=== PATIENT | male | born 1960 | race Caucasian/White ===

== ENCOUNTER 2017-11-01 09:13 | Observation (INO) | payer MEDICARE ==
[2017-11-01 09:44] LABS: #Eosinphils 0.3 thou/uL (0.0-0.7); #Lymphocytes 0.7 thou/uL (1.20-3.40); #Monocytes 0.5 thou/uL (0.11-0.59); #Neutrophils 6.7 thou/uL (1.40-6.50); %Basophils 0.2 % (0.0-1.0); %Eosinophils 3.5 % (0.0-10.0); %Lymphocytes 8.7 % (21.0-51.0); %Monocytes 5.6 % (0.0-10.0); Hemoglobin 10.5 g/dL (14.0-18.0); Mean Corpuscular HGB CONC 32.2 g/dL (32.0-36.0); Mean Corpuscular Hemoglobin 31.8 pg (27.0-31.0); Mean Corpuscular Volume 98.7 fl (80.0-94.0); Mean Platelet Volume 6.8 fL (7.4-10.4); Platelet Count 270 thou/uL (130-400); RBC Distribution Width 14.1 % (11.5-14.5); Red Blood Cell (RBC) Count 3.32 mill/uL (4.70-6.10); White Blood Cell (WBC) Count 8.1 thou/uL (4.8-10.8)
[2017-11-01 09:46] LABS: PTT 26.1 SEC (22.9-36.1); Prothrombin Time 12.8 SEC (12.0-14.7)
[2017-11-01 10:01] LABS: ALT (SGPT) 12 U/L (8-55); AST (SGOT) 12 U/L (5-34); Albumin 3.8 g/dL (3.5-5.0); Alkaline Phosphatase 97 U/L (40-150); Anion Gap 12 mmol/L (10-20); BUN (Urea Nitrogen) 15 mg/dL (8.4-25.7); Bilirubin, Total 0.3 mg/dL (0.2-1.2); CK (CPK) 43 U/L (30-200); Calc. Creatinine Clearance 0 mL/min (70-130); Calcium 8.7 mg/dL (7.8-10.44); Carbon Dioxide 21 mmol/L (22-29); Chloride 110 mmol/L (98-107); Estimated GFR-MDRD 73; Globulin 3.3 g/dL (2.4-3.5); Glucose 155 mg/dL (70-105); Potassium 3.8 mmol/L (3.5-5.1); Protein, Total 7.1 g/dL (6.0-8.3); Sodium 139 mmol/L (136-145)
--- NOTE | 2017-11-01 10:04 | RAD ---
PORTABLE CHEST 1 VIEW: Date: 11/01/17 Time: 1030 hours HISTORY: Chest pain. FINDINGS/IMPRESSION: The heart size is prominent. Left-sided AICD is present. Lungs are well expanded without focal areas of consolidation, pneumothorax, arpan pulmonary edema, or pleural effusions. POS: OFF
[2017-11-01 10:16] LABS: CKMB 0.6 ng/mL (0-6.6); Troponin I Less than 0.010 ng/mL (< 0.028)
[2017-11-01] MEDS ORDERED: Morphine 4 MG/ML VIAL ONE (11:05)
[2017-11-01] MEDS ORDERED: Ondansetron HCl/PF 4 MG/2 ML Vial ONE (11:08)
--- NOTE | 2017-11-01 12:03 | CT ---
CT ABDOMEN AND PELVIS WITH IV CONTRAST: HISTORY: Left flank pain and melena. COMPARISON: None. TECHNIQUE: Multiple axial tomograms obtained through the abdomen and pelvis with IV enhancement. FINDINGS: The lung bases are clear. The liver, spleen, and pancreas appear unremarkable. The stomach and duodenum are unremarkable. The adrenal glands are normal. Review of the kidneys reveals numerous calcified lesions seen in the left kidney. There is at least one of these calcified lesions in the right kidney, which is subcentimeter. On the left, the largest of these calcified lesions is in the superior pole and measures approximately 1.7 cm. At least one is exophytic, off the inferior pole of the left kidney, measuring approximately 1 cm. The kidneys otherwise show symmetric function and enhancement. There is no hydronephrosis. The uret ers are unremarkable. No calcifications are seen within the collecting structures. These calcified lesions are within the renal parenchyma. The urinary bladder is unremarkable. Small bowel loops are of normal caliber. The colon is unremarkable. There appears to be a radiopaque suture line in the upper sigmoid, which may represent an anastomotic site. The aorta is of normal caliber. No adenopathy identified. The o sseous structures are unremarkable. IMPRESSION: 1. Numerous densely calcified lesions involving both kidneys, more numerous on the left, as describe d above. These have the appearance of prior renal cysts that have calcified, possibly due to dense m ilk of calcium formation within renal cysts. 2. No acute process identified. POS: [facility]
[2017-11-01 13:29] LABS: Troponin I Less than 0.010 ng/mL (< 0.028)
[2017-11-01] MEDS ORDERED: Mag-Al 1200 mg/1200 mg/30 ML UDCUP PO PRN (14:20)
[2017-11-01] MEDS ORDERED: Loratadine 10 MG TAB PO PRN (14:20)
[2017-11-01] MEDS ORDERED: hydrALAZINE 20 MG/ML VIAL SLOW IVP PRN (14:20)
[2017-11-01] MEDS ORDERED: Zolpidem Tartrate 5 MG TAB PO PRN (14:20)
[2017-11-01] MEDS ORDERED: Acetaminophen 325 MG TAB PO PRN (14:20)
[2017-11-01] MEDS ORDERED: Artificial Tears 18 DROP/0.9 ML EA EYE PRN (14:20)
[2017-11-01] MEDS ORDERED: Eucerin (Mineral Oil/Petrolatum,White) 30 gm Jar TOP PRN (14:20)
[2017-11-01] MEDS ORDERED: Loperamide HCl 2 MG CAP PO PRN (14:20)
[2017-11-01] MEDS ORDERED: Senokot 8.6 MG TAB PO PRN (14:20)
[2017-11-01] MEDS ORDERED: HYDROcodone/Acetaminophen 10/325 mg Tablet PO PRN (14:20)
[2017-11-01] MEDS ORDERED: Ondansetron ODT 4 MG TAB PO PRN (14:20)
[2017-11-01] MEDS ORDERED: Sodium Chloride 0.65% Nasal 44 ML BOT EA NARE PRN (14:20)
[2017-11-01] MEDS ORDERED: Diabetic Tussin 200 MG/10 ML UDCUP PO PRN (14:20)
[2017-11-01] MEDS ORDERED: Ondansetron HCl/PF 4 MG/2 ML Vial IVP PRN (14:20)
[2017-11-01] MEDS ORDERED: Milk Of Magnesia 30 ML UDCUP PO PRN (14:20)
[2017-11-01] MEDS ORDERED: ISOVUE-370 76%-LOCM 1 ML ONE (14:27)
[2017-11-01 15:07] VITALS: BMI 37.1
[2017-11-01] MEDS: metroNIDAZOLE 500 MG TAB PO SCH ×2 (15:32→20:21)
[2017-11-01] MEDS: Morphine 5 MG/ML SYRINGE SLOW IVP PRN ×2 (15:33→20:19)
--- NOTE | 2017-11-01 15:38 | HP ---
PRIMARY CARE PHYSICIAN: [facility] call admission. This patient is originally from [place] and he is paigedanii pierce to establish here locally and currently he does not have any primary care physician. REASON FOR ADMISSION: Left lower quadrant abdominal pain, chest pain. HISTORY OF PRESENT ILLNESS: A 56-year-old male, who has underlying history of congestive heart failu re and AICD, who came to emergency room with a complaint of left lower quadrant abdominal pain and ch est pain. The patient reports that yesterday morning, he was experiencing left lower quadrant pain a nd he also noticed maroon color blood in the stool. He denies any fever or chills. He was feeling n ausea, but he did not have any vomiting. This type of pain he had on and off yesterday. He reported to me that he had 3-4 times hematochezia. He denies any melena. He denies any hematemesis. He den ies any epigastric abdominal pain. He is only taking aspirin as a blood thinner medicine, but he den ies taking any other blood thinner medicine. He denies any fever or chills. He denies any constipat ion, diarrhea. He denies any abdominal distention. Today in the emergency room, patient had stool for guaiac checked, it was negative for any blood. Hi s hemoglobin is 10.5. This patient reports that this morning when he woke up, at that time, he was having substernal chest pain, which radiated to left side of his neck associated with nausea, weakness, and mild shortness of breath. He denied any pleuritic chest pain. He denies any relation of chest pain with food, respir ation or activity. He denies any fever, cough. In the emergency room, this patient had electrocardiogram, which showed sinus tachycardia, left anter ior fascicular block and chest x-ray was normal. This patient also had a CT of the abdomen and pelvi s, which was negative for any acute process. Cardiac enzymes were negative. Patient is being admitt ed for observation for above-mentioned reasons. ALLERGIES: No known drug allergy. CURRENT HOME MEDICATIONS: Lisinopril 20 mg p.o. daily, Coreg 6.25 mg p.o. b.i.d., aspirin 81 mg p.o. daily, and Lasix 20 mg p.o. daily. REVIEW OF SYSTEMS: The following complete review of systems was negative, unless otherwise mentioned in the HPI or below: Constitutional: Weight loss or gain, ability to conduct usual activities. Skin: Rash, itching. Eyes: Double vision, pain. ENT/Mouth: Nose bleeding, neck stiffness, pain, tenderness. Cardiovascular: Palpitations, dyspnea on exertion, orthopnea. Respiratory: Shortness of breath, wheezing, cough, hemoptysis, fever or night sweats. Gastrointestinal: Poor appetite, abdominal pain, heartburn, nausea, vomiting, constipation, or diarrh ea. Genitourinary: Urgency, frequency, dysuria, nocturia. Musculoskeletal: Pain, swelling. Neurologic/Psychiatric: Anxiety, depression. Allergy/Immunologic: Skin rash, bleeding tendency. Please see my HPI for pertinent positive and negative. All other review of systems reviewed and nega tive except mentioned in the HPI. PAST MEDICAL HISTORY: Hypertension, obesity, chronic low back pain, congestive heart failure type of EF not known, coronary artery disease with stent. PAST SURGICAL HISTORY: Appendicectomy, colon resection for diverticulitis with complications. PAST PSYCHIATRIC HISTORY: Reviewed and negative. SOCIAL HISTORY: The patient currently lives with a friend. No history of illicit drug abuse. He is on disability. He chews tobacco. He drinks alcohol occasionally. He smokes cigarette occasionally . FAMILY HISTORY: Father had lung cancer and heart disease. No family history of stroke. EMERGENCY ROOM COURSE: The patient is given morphine 4 mg, Zofran 4 mg, IV fluid 1 liter. PHYSICAL EXAMINATION: VITAL SIGNS: On arrival, blood pressure 117/80, pulse 110, respiratory rate 18, temperature 98.0, sa turation 98% on room air, weight 113.4 kilograms. GENERAL: Patient is currently alert, awake, no obvious acute distress. HEENT: Head is normocephalic, atraumatic. Eyes: Pupils round, reactive to light. Extraocular musc le intact. ENT: Oropharynx within normal limits. Moist mucous membranes. No oral lesion, no pharyngeal erythe ma, no exudate. NECK: Supple, no JVD, no thyromegaly, no carotid bruit, no jugular venous distention. LUNGS: Clear to auscultation without any rhonchi or rales. CARDIAC: S1, S2 regular, tachycardia, no murmur, no gallop, no rub. ABDOMEN: Left lower quadrant discomfort noted, but no direct rebound tenderness, no guarding, no rig idity, no rebound. RECTAL: Examination done, which showing stool normal without any blood. BACK: Unremarkable, no CVA tenderness. EXTREMITIES: Upper extremity passive movement of all joints are normal. Lower extremities: No yu a. Good peripheral pulsation. SKIN: No skin rash. HEMATOLOGICAL: No lymphadenopathy. PSYCHIATRIC: Normal affect. NEUROLOGIC: Nonfocal examination. SIGNIFICANT LABS: EKG showing sinus tachycardia, left anterior fascicular block, left atrial enlarge ment. Chest x-ray based on my review, no acute cardiopulmonary process, AICD in place. Abdomen and pelvis CT scan showing diverticulitis, renal cyst. CBC: WBC 8.1, hemoglobin 10.5, MCV 98.7, platele t 270. INR 1.0. BMP shows sodium 139, potassium 3.8, chloride 110, carbon dioxide 21, BUN 15, creat inine 1.05, glucose 155, calcium 8.7. LFT: AST 12, ALT 12, alkaline phosphatase 97, albumin 3.8. Cardiac enzymes negative x2. CK 43. ASSESSMENT AND PLAN: 1. Left lower quadrant abdominal pain with suspected he may to change via the patient reports that charles painting had left lower quadrant abdominal pain yesterday with maroon colored blood. Currently, guaiac is n egative. He does not have any leukocytosis. He does not have any local peritoneal sign. CT of the abdomen and pelvis with IV contrast is also negative for any diverticulitis. At this point, we will monitor clinically. If this patient persistently having pain, then he will consider adding p.o. oral ly Cipro and Flagyl to p.o. Cipro and Flagyl empirically for some early diverticulitis. We will als o check urinalysis and send urine culture. We will control his pain with [place] and morphine p.r.n. b asis while in hospital. 2. Chest pain. The patient's chest pain description is atypical. He has coronary artery disease, b ut currently EKG is not showing any ischemic changes. His troponin is also negative x2 in this way w e ruled out acute coronary syndrome. We will do third set of cardiac enzyme and will consider doing Cardiolite stress test tomorrow morning for diagnostic reason. We will check lipid profile for risk stratification. We will check BNP. Given his history of congestive heart failure. Meanwhile, while in hospital, we will continue aspirin 81 mg p.o. daily. We will hold on blood pressure medication a s well as nitropatch because of relatively low blood pressure. 3. Congestive heart failure, systolic or diastolic is not done, but he has AICD and suspecting from diastolic, heart rate a screen. suspecting from systolic heart failure. At this point, the patient is already taking lisinopril and Coreg therapy, but currently blood pressure is running low and that is why we will hold on blood pressure medication upon discharge. We will continue titrated dose of l isinopril and Coreg. 4. Obesity. Dietary education given, weight loss education given. Healthy lifestyle measures discu ssed with the patient. 5. Chronic low back pain. The patient will be given pain medication. 6. Anemia, normocytic with macrocytosis. Continue ferrous sulfate and multivitamin therapy while in hospital. 7. Deep venous thrombosis prophylaxis not needed because we are expecting discharge in 24 hours. 8. Gastrointestinal prophylaxis, Pepcid 20 mg p.o. b.i.d. 9. Code status: The patient is FULL CODE. Patient does not have any surrogate decision maker. DISPOSITION AND PLAN: Based on stress test result. Plan of care discussed with the patient in karla cervantes
[2017-11-01 16:08] LABS: Troponin I Less than 0.010 ng/mL (< 0.028)
[2017-11-01 17:03] LABS: Bilirubin Negative (Negative); Blood, Urine Negative (Negative); Clarity CLEAR (Clear); Glucose, Urine (Dipstick) Negative (Negative); Leukocyte Negative (Negative); Nitrite Negative (Negative); Protein, Urine (Dipstick) Negative (Neg-Trace); Urobilinogen 0.2 mg/dL (0.2-1.0); pH, Urine 5.5 (5.0-9.0)
[2017-11-01 17:08] LABS: Bacteria/HPF None Seen HPF (None Seen); Hyaline Casts/LPF 0-3 HYALINE CAST LPF (0-3 Hyaline); RBC/HPF 0-3 HPF (0-3); Squamous Epithelial 0-3 HPF (0-3); WBC/HPF 0-3 HPF (0-3)
[2017-11-01 19:19] LABS: Hemoglobin 9.4 g/dL (14.0-18.0)
[2017-11-01] MEDS: Cipro 250 MG TAB PO SCH (20:21)
[2017-11-01] MEDS: Famotidine 20 MG TAB PO SCH (20:22)
[2017-11-02] MEDS: Morphine 5 MG/ML SYRINGE SLOW IVP PRN ×3 (01:47→12:15)
[2017-11-02 05:20] LABS: #Basophils 0.1 thou/uL (0.0-0.2); #Eosinphils 0.4 thou/uL (0.0-0.7); #Lymphocytes 0.7 thou/uL (1.20-3.40); #Monocytes 0.4 thou/uL (0.11-0.59); #Neutrophils 3.8 thou/uL (1.40-6.50); %Basophils 1.3 % (0.0-1.0); %Eosinophils 6.7 % (0.0-10.0); %Monocytes 7.5 % (0.0-10.0); %Neutrophils 71.4 % (42.0-75.0); Hemoglobin 8.6 g/dL (14.0-18.0); Mean Corpuscular HGB CONC 33.1 g/dL (32.0-36.0); Mean Corpuscular Volume 96.7 fl (80.0-94.0); Mean Platelet Volume 6.4 fL (7.4-10.4); Platelet Count 211 thou/uL (130-400); White Blood Cell (WBC) Count 5.3 thou/uL (4.8-10.8)
[2017-11-02 05:27] LABS: Anion Gap 8 mmol/L (10-20); BUN (Urea Nitrogen) 12 mg/dL (8.4-25.7); Calc. Creatinine Clearance 160 mL/min (70-130); Calcium 8.2 mg/dL (7.8-10.44); Carbon Dioxide 26 mmol/L (22-29); Cardiac Risk 3.4 (Less than 4.5); Chloride 109 mmol/L (98-107); Cholesterol 94 mg/dl (< 200 Desired); Estimated GFR-MDRD Greater than 90; Glucose 113 mg/dL (70-105); HDL Cholesterol 28 mg/dL (>60 Neg Risk); LDL Cholesterol, Calculated 54 mg/dL; Potassium 3.9 mmol/L (3.5-5.1); Sodium 139 mmol/L (136-145); Triglycerides 59 mg/dL (Less than 150)
[2017-11-02] MEDS: Cipro 250 MG TAB PO SCH (06:08)
--- NOTE | 2017-11-02 10:31 | PDOC.PN ---
- Subjective Encounter Start Date: 11/02/17 Encounter Start Time: 08:40 -: old records requested/rev Patient seen and examined. No new complaints. No overnight events - Objective Resuscitation Status: Resuscitation Status FULL:Full Resuscitation MAR Reviewed: Yes Vital Signs & Weight: Vital Signs (12 hours) Temp Pulse Resp BP Pulse Ox 11/02/17 08:00 98.3 F 82 16 11/02/17 07:53 98.3 F 82 16 99/53 L 97 11/02/17 04:53 98.6 F 85 18 103/55 L 95 Weight Weight 251 lb 11.2 oz I&O: 11/01/17 11/02/17 11/03/17 06:59 06:59 06:59 Intake Total 1090 Output Total 201 Balance 889 Result Diagrams: 11/02/17 04:55 11/02/17 04:55 EKG Reviewed by me: Yes Phys Exam - Physical Examination Constitutional: NAD HEENT: PERRLA, moist MMs, sclera anicteric Neck: no JVD, supple Respiratory: no wheezing, no rales, no rhonchi Cardiovascular: RRR, no significant murmur, no rub Gastrointestinal: soft, non-tender, no distention, positive bowel sounds Musculoskeletal: no edema, pulses present Neurological: non-focal, normal sensation Lymphatic: no nodes Psychiatric: normal affect, A&O x 3 Skin: no rash, normal turgor Dx/Plan (1) Chest pain Code(s): R07.9 - CHEST PAIN, UNSPECIFIED Status: Acute (2) LLQ abdominal pain Code(s): R10.32 - LEFT LOWER QUADRANT PAIN Status: Acute (3) Anemia, normocytic normochromic Code(s): D64.9 - ANEMIA, UNSPECIFIED Status: Chronic (4) CHF (congestive heart failure) Code(s): I50.9 - HEART FAILURE, UNSPECIFIED Status: Chronic Qualifiers: Heart failure type: unspecified Heart failure chronicity: chronic Qualified Code(s): I50.9 - Heart failure, unspecified (5) Obesity (BMI 30-39.9) Code(s): E66.9 - OBESITY, UNSPECIFIED Status: Chronic - Plan cont current plan of care, continue antibiotics * continue empiric cipro and flagyl for suspected early diverticulitis * today stress test, if negative will discharge and advised outpt follow up * medication reviewed as below * symptomatic treatment. * hold BP meds for low BP * add ferrous sulfate * check H & H at 1 pm Review of Systems - Review of Systems ENT: negative: Ear Pain, Ear Discharge, Nose Pain, Nose Discharge, Nose Congestion, Mouth Pain, Mouth Swelling, Throat Pain, Throat Swelling, Other Respiratory: negative: Cough, Dry, Shortness of Breath, Hemoptysis, SOB with Excertion, Pleuritic Pain, Sputum, Wheezing Cardiovascular: negative: chest pain, palpitations, orthopnea, paroxysmal nocturnal dyspnea, edema, light headedness, other Gastrointestinal: negative: Nausea, Vomiting, Abdominal Pain, Diarrhea, Constipation, Melena, Hematochezia, Other Genitourinary: negative: Dysuria, Frequency, Incontinence, Hematuria, Retention , Other Musculoskeletal: negative: Neck Pain, Shoulder Pain, Arm Pain, Back Pain, Hand Pain, Leg Pain, Foot Pain, Other Skin: negative: Rash, Lesions, [place], Bruising, Other - Medications/Allergies Allergies/Adverse Reactions: Allergies Allergy/AdvReac Type Severity Reaction Status Date / Time No Known Drug Allergies Allergy Verified 11/01/17 14:34 Medications: Current Medications Acetaminophen (Tylenol) 650 mg PO Q4H PRN PRN Reason: Headache/Fever or Pain Hydrocodone Bitart/Acetaminophen ([place] 10/325) 1 tab PO Q4H PRN PRN Reason: Moderate Pain (4-6) Al Hydroxide/Mg Hydroxide (Maalox) 30 ml PO Q6H PRN PRN Reason: Heartburn or Indigestion Artificial Tears (Tears Naturale) 0 drop EA EYE PRN PRN PRN Reason: Dry Eyes Aspirin (Aspirin Chewable) 81 mg PO DAILY [facility] Ciprofloxacin (Cipro) 500 mg PO [phone] [facility] Last Admin: 11/02/17 06:08 Dose: 500 mg Famotidine (Pepcid) 20 mg PO BID [facility] Last Admin: 11/01/17 20:22 Dose: 20 mg Guaifenesin (Robitussin Sf) 200 mg PO Q4H PRN PRN Reason: Cough Hydralazine HCl (Apresoline) 10 mg SLOW IVP Q4H PRN PRN Reason: Systolic BP > 180 Loperamide HCl (Imodium) 2 mg PO PRN PRN PRN Reason: Diarrhea/Loose Stools Loratadine (Claritin) 10 mg PO DAILYPRN PRN PRN Reason: Sinus Symptoms Magnesium Hydroxide (Milk Of Magnesium) 30 ml PO DAILYPRN PRN PRN Reason: Constipation Metronidazole (Flagyl) 500 mg PO TID [facility] Last Admin: 11/01/17 20:21 Dose: 500 mg Mineral Oil/White Petrolatum (Eucerin Cream) 0 gm TOP BIDPRN PRN PRN Reason: Dry Skin Morphine Sulfate (Morphine) 2 mg SLOW IVP Q4H PRN PRN Reason: Severe Pain (7-10) Last Admin: 11/02/17 06:06 Dose: 2 mg Ondansetron HCl (Zofran Odt) 4 mg PO Q6H PRN PRN Reason: Nausea/Vomiting Ondansetron HCl (Zofran) 4 mg IVP Q6H PRN PRN Reason: Nausea/Vomiting Last Admin: 11/02/17 01:47 Dose: 4 mg Senna (Senokot) 2 tab PO HSPRN PRN PRN Reason: Constipation Sodium Chloride ([place] Nasal [place] 0.65%) 0 ml EA NARE QIDPRN PRN PRN Reason: Nasal Congestion Zolpidem Tartrate (Ambien) 5 mg PO HSPRN PRN PRN Reason: Insomnia
[2017-11-02] MEDS: Famotidine 20 MG TAB PO SCH (12:14)
[2017-11-02] MEDS: metroNIDAZOLE 500 MG TAB PO SCH (12:14)
[2017-11-02 13:04] VITALS: BP 103/51; TEMP 97.7
[2017-11-02] MEDS ORDERED: ADENOSINE 60 MG/20 ML VIAL ONE (13:21)
--- NOTE | 2017-11-02 13:50 | NM ---
NUCLEAR MEDICINE CARDIAC MYOCARDIAL PERFUSION SPECT EJECTION FRACTION STUDY WALL MOTION CINE: HISTORY: 56-year-old male with acute chest pain. History of congestive heart failure and hypertension. TECHNIQUE: Number of days: 1 Rest study: Tc99m sestamibi (Cardiolite) dose: 11.0 mCi Pharmacologic stress: Adenosine dose: 63.8 mg Stress study: Tc99m sestamibi (Cardiolite) dose: 30.0 mCi FINDINGS: CARDIAC (MYOCARDIAL PERFUSION) SPECT There is a large, fixed perfusion defect involving the entire cardiac apex, and involving a large por tion of the anterior wall, and significant adjacent portions of the anteroseptal and anterolateral wa ll. No reversible perfusion defect is identified. EJECTION FRACTION STUDY EF = 22% WALL MOTION CINE There is diffuse, severe global hypokinesis. The apex is akinetic. IMPRESSION: 1. Large infarction/scar. 2. No reversible ischemia identified. 3. Very low left ventricular ejection fraction of 22%. ANNY Mauro POS: [facility]
[2017-11-02 14:03] LABS: Hemoglobin 9.6 g/dL (14.0-18.0)
--- NOTE | 2017-11-02 15:07 | DIS ---
DATE OF ADMISSION: 11/01/2017 DATE OF DISCHARGE: 11/02/2017 PRIMARY CARE PHYSICIAN: [facility] Call admission. DISCHARGE DISPOSITION: Home. PRIMARY DISCHARGE DIAGNOSES: 1. Chest pain, ruled out acute coronary syndrome. 2. Left lower quadrant abdominal pain, improved. SECONDARY DISCHARGE DIAGNOSES: Chronic systolic heart failure, nonischemic cardiomyopathy, anemia, n ormocytic, normochromic, obesity with body mass index of 37. PRIMARY PROCEDURE/OPERATION: None. RADIOLOGICAL INVESTIGATION: Chest x-ray, CT of the abdomen and pelvis, stress test. SIGNIFICANT LABORATORY DATA: Hemoglobin 9.6, creatinine 0.84. Cardiac enzymes negative x3. Electro lytes, LFTs normal. LDL 54. Urinalysis normal. Urine culture negative. Stool for guaiac negative. DISCHARGE MEDICATIONS: Aspirin 81 mg p.o. daily, Coreg 6.25 mg p.o. b.i.d., Cipro 500 mg p.o. b.i.d. for 7 days, Pepcid 20 mg p.o. b.i.d., ferrous sulfate 325 mg p.o. b.i.d., Lasix 20 mg p.o. daily, li sinopril 20 mg p.o. daily, Flagyl 500 mg p.o. t.i.d. (the patient is instructed to hold blood pressur e medication if blood pressure is less than 110 systolic). CONTRAINDICATIONS: None. CODE STATUS: FULL CODE. INPATIENT CONSULTANTS: None. ALLERGIES: No known drug allergy. DISCHARGE PLAN: Post hospital, the patient is instructed to make appointment with primary care physi carola as well as strawberry grower as an outpatient basis. The patient will need outpatient echocardiograp hy. HOSPITAL COURSE: A 56-year-old male who was admitted for left lower quadrant abdominal pain and ches t pain. The patient was presumed for diverticulitis. He had CT of the abdomen and pelvis which was negative for any diverticulitis, but as patient had previous similar problem with diverticulitis that is why we decided to treat him empirically with Cipro and Flagyl orally. For chest pain, we did str ess test and that came back negative. Patient's blood pressure was running normal. He has a nonisch emic cardiomyopathy and at this time, stress test did not show any reversible ischemia. The patient is instructed to make appointment with primary care physician as well as strawberry grower. He already watts s AICD in place. The patient is medically stable for discharge today. The patient is seen and examined at bedside today. Please see my progress note from today for furthe r detail.
[2017-11-02] MEDS ORDERED: Ferrous Sulfate 325 MG TAB PO SCH (17:00)
--- NOTE | 2017-11-05 13:35 | STRESS ---
Acquisition Time: 2017-11-02 10:49:37 Total Exercise Time: 00:04:00 Test Indications: CHEST PAIN Medications: Protocol: ADENOSINE Max HR: 102 BPM 61% of Pred: 165 BPM Max BP: 112/064 mmHG Max Work Load: 1.0 METS RESTING ECG: NORMAL SINUS RHYTHM AT 76 BPM WITH A LEFT ANTERIOR FASCICULAR BLOCK SYMPTOMS: NONE NORMAL BP RESPONSE ECTOPY: NONE ECG STRESS: NO SIGNIFICANT CHANGES INTERPRETATION: INDETERMINATE ECG/AWAIT NUCLEAR IMAGES FOR DEFINITIVE DIAGNOSIS Confirmed by GEORGETTE JACKSON ([id number]) on 11/05/2017 1:35:17 PM Referred By: Dashawn LOPEZ Confirmed By:GEORGETTE JACKSON
--- NOTE | 2017-12-13 16:09 | EKG ---
Test Reason : CP Blood Pressure : / mmHG Vent. Rate : 102 BPM Atrial Rate : 102 BPM P-R Int : 152 ms QRS Dur : 098 ms QT Int : 348 ms P-R-T Axes : 057 -66 063 degrees QTc Int : 453 ms Sinus tachycardia Possible Left atrial enlargement Left anterior fascicular block Abnormal ECG Confirmed by BELLA FALLON, RICHARD ([id number]), development editor NANI FISHMAN ([id number]) on 12/13/2017 4:09:36 PM Referred By: Confirmed By:RICHARD BLANCO MD
== END 2017-11-02 15:04 | disposition home or self-care (01) ==
LOC: ERS 09:13 → 2SW 12:44
PROVIDERS: ADMIT Internal Medicine; ATTEND Internal Medicine
DX: R07.2 Precordial pain (principal); R10.32 Left lower quadrant pain; I11.0 Hypertensive heart disease with heart failure; I50.22 Chronic systolic (congestive) heart failure; I42.8 Other cardiomyopathies; M54.5 Low back pain; G89.29 Other chronic pain; F17.210 Nicotine dependence, cigarettes, uncomplicated; F17.220 Nicotine dependence, chewing tobacco, uncomplicated; I25.10 Atherosclerotic heart disease of native coronary artery without angina pectoris; D64.9 Anemia, unspecified; E66.9 Obesity, unspecified; Z68.37 Body mass index [BMI] 37.0-37.9, adult; Z79.82 Long term (current) use of aspirin; Z79.899 Other long term (current) drug therapy; Z95.810 Presence of automatic (implantable) cardiac defibrillator; Z95.5 Presence of coronary angioplasty implant and graft; Z90.49 Acquired absence of other specified parts of digestive tract
CPT/HCPCS: 71045; 74177; 78452; 80048; 80053; 80061; 81001; 82274; 82550; 82553; 84484 ×2; 85014 ×2; 85018 ×2; 85025 ×2; 85610; 85730; 87086; 93005; 93017; 94760; 96361; 96374; 96375; 96376 ×2; 99285; A9500; G0378; 36415; J2270; J0153; J2405